=== PATIENT | female | born 1965 | race Two or more races ===

== ENCOUNTER 2021-09-28 21:29 | Emergency (ER) | payer OTHER ==
[~2021-09-28] VITALS: Ht 162.6 cm; Wt 61.7 kg
[~2021-09-28 21:29] MED LIST: CIPRO500 MG PO; PERCOCET 5/3251 TAB PO; PROTONIX40 MG PO
== END 2021-09-28 23:14 | disposition home or self-care (01) ==
LOC: ER 21:29
DX: R05.9 Cough, unspecified (principal); R06.02 Shortness of breath; U09.9 Post COVID-19 condition, unspecified